=== PATIENT | male | born 1960 | race Caucasian/White ===

== ENCOUNTER 2017-08-01 12:18 | Emergency (ER) | payer OTHER ==
[~2017-08-01] VITALS: Ht 193 cm; Wt 104.3 kg
--- NOTE | ~2017-08-01 | EKG ---
[address] [address] ELECTROCARDIOGRAM REPORT Name: GREGORIO PAN [facility] #: [facility] [id number] Admission: 08/01/17 Attend Phys: Discharge: 08/01/17 Date of : 60 Report #: [id number] THIS REPORT FOR: //name// [facility] ED Test Date: 2017-08-01 Test Time: 13:01:05 Pat Name: GREGORIO PAN Department: Room: Gender: M Online Merchandiser: [id number] : 1960 Requested By: Alfonso Griffin Order Number: [id number] MD: Hai Gonzalez Measurements Intervals [place] Rate: 56 P: 51 TN: 169 QRS: 40 QRSD: 92 T: 45 QT: 415 QTc: 401 Interpretive Statements Sinus rhythm Compared to ECG 03/19/2016 10:45:49 ST (T wave) deviation no longer present Electronically Signed On 08-01-2017 15:47:20 CDT by Hai Gonzalez [email or web address] <ELECTRONICALLY SIGNED> By: Hai Gonzalez MD 08/01/17 1547 1301 130 Hai Gonzalez MD /NEREYDA
[~2017-08-01 12:18] MED LIST: ADULT LOW DOSE81 MG PO; ALEVE220 MG PO; AMARYL1 MG PO; AMARYL2 MG PO; ASPIRIN325 PO; BACTRIM DS TAB1 EACH PO; CELEXA 10 MG TA10 M1 PO; CLARITIN10 MG PO; COLACE100 MG PO; DIABETA 2.5MG2.5 MG PO; DILAUDID 2 MG TA2 MG PO; EPIPEN 2-P0.3 MG/0.3 IM; FISH OIL 1,0001 EAC5 PO; FLEET ENEMA118 ML; FLOMAX PO; GLUCOPHAGE1000 MG PO; GLUMETZA1000 PO; HYDROCODON-ACE1 EAC8 PO; IBUPROFEN 800800 M1 PO; IBUPROFEN 800800 MG PO; IMDUR 30 MG TAB30 MG PO; ISOSORBIDE DINI30 MG PO; ISOSORBIDE MONO30 M1 PO; KEFLEX500 MG PO; LEVAQUIN 500 M500 M2 PO; LIPITOR10 MG PO; LISINOPRIL-HCT1 EAC1 PO; LISINOPRIL40 MG PO; LYRICA 75 MG CA75 MG PO; LYRICA150 MG PO; MEDROL DOSPAK21 TAB PO; MEDROLDOSEPACK PO; NABUMETONE 500500 M1 PO; NEURONTIN 300300 M1 PO; NITROSTAT0.4 MG SUBLING; NORCO 5-325 TA1 EACH PO; OSELB75 PO; OXYCODONE HCL5 M1; PERCOCET 5-3251 EACH PO; PERCOCET PO; PREDNISONE 20 M20 MG PO; SIMVASTATIN80 MG PO; TAMSULOSIN HCL0.4 M1 PO; TIZANIDINE HCL4 MG PO; TRAMADOL 50 MG50 MG PO; VITAMINC500 PO; XANAX XR0.5 MG PO; ZANTAC 150MG T150 M1 PO; ZESTRIL10 MG PO
[2017-08-01 12:46] LABS: HEMOGLOBIN 14.5 gm/dL (14.0-18.0); MCH 31.7 pg (26.0-34.0); MCHC 34.5 g/dL (28.0-37.0); RBC 4.56 mil/uL (4.50-6.00); RDW 12.8 % (10.5-14.5); WBC 5.5 thou/uL (4.0-11.0)
[2017-08-01 12:50] LABS: ANION GAP 7 mmol/L (7-16); BUN 14 mg/dL (7-18); CALCIUM 8.8 mg/dL (8.5-10.1); CHLORIDE 105 mmol/L (98-107); CO2 27 mmol/L (21-32); CREATININE 0.8 mg/dL (0.7-1.3); GLUCOSE 189 mg/dL (74-106); POTASSIUM 4.4 mmol/L (3.5-5.1); SODIUM 139 mmol/L (136-145)
[2017-08-01 12:59] LABS: TROPONIN-I < 0.04 ng/mL (<0.04-0.07)
[2017-08-01 13:30] LABS: URINE BILIRUBIN NEGATIVE (Negative); URINE BLOOD NEGATIVE (Negative); URINE COLOR YELLOW; URINE GLUCOSE-RANDOM* NEGATIVE (Negative); URINE KETONES NEGATIVE (Negative); URINE LEUKOCYTES-REFLEX NEGATIVE (Negative); URINE PROTEIN (DIPSTICK) NEGATIVE (Negative); URINE UROBILINOGEN 0.2 E.U./dl (0.2-1.0)
[2017-08-01 14:12] VITALS: BP 116/76
== END 2017-08-01 14:20 | disposition short-term general hospital (02) ==
LOC: ER 12:18
PROVIDERS: Emergency Medicine
DX: R40.0 Somnolence (principal); R53.83 Other fatigue; F17.210 Nicotine dependence, cigarettes, uncomplicated

== ENCOUNTER 2019-01-12 09:04 | Emergency (ER) | payer OTHER ==
[~2019-01-12] VITALS: Ht 188 cm; Wt 113.4 kg
[2019-01-12] MEDS ORDERED: LYRICA 75 MG CA75 MG PO (09:20)
[2019-01-12] MEDS ORDERED: SYMBICORT160 MCG/4. INH (09:21)
[2019-01-12] MEDS ORDERED: LISINOPRIL2.5 MG PO (09:21)
[2019-01-12 09:31] LABS: ABSOLUTE NEUTROPHILS 5.1 thou/uL (1.4-8.2); BASOPHILS 0.6 % (0.0-2.0); EOSINOPHILS 3.2 % (0.0-3.0); HEMATOCRIT 48.5 % (42.0-52.0); HEMOGLOBIN 16.7 gm/dL (14.0-18.0); LYMPHOCYTES 13.3 % (24.0-44.0); MCH 31.9 pg (26.0-34.0); MCHC 34.5 g/dL (28.0-37.0); MCV 92.5 fL (80.0-100.0); MONOCYTES 8.1 % (1.0-8.0); PLATELET COUNT 148 thou/uL (150-400); POLYS 74.8 % (36.0-66.0); RBC 5.24 mil/uL (4.50-6.00); RDW 13.2 % (10.5-14.5); WBC 6.8 thou/uL (4.0-11.0)
[2019-01-12 09:35] LABS: CREATININE 0.8 mg/dL (0.7-1.3); POTASSIUM 4.1 mmol/L (3.5-5.1)
[2019-01-12 09:41] LABS: ALBUMIN 4.2 g/dL (3.4-5.0); TOTAL BILIRUBIN 0.6 mg/dL (<0.1-1.0); TOTAL PROTEIN 7.5 g/dL (6.4-8.2)
[2019-01-12 10:43] LABS: URINE BILIRUBIN NEGATIVE (Negative); URINE BLOOD NEGATIVE (Negative); URINE CLARITY CLEAR; URINE COLOR YELLOW; URINE GLUCOSE-RANDOM* 3+ (Negative); URINE KETONES NEGATIVE (Negative); URINE LEUKOCYTES-REFLEX NEGATIVE (Negative); URINE NITRITE-REFLEX NEGATIVE (Negative); URINE PROTEIN (DIPSTICK) NEGATIVE (Negative); URINE UROBILINOGEN 0.2 E.U./dl (0.2-1.0)
[2019-01-12 12:02] LABS: LIPASE 132 U/L (73-393); TROPONIN-I <0.06 ng/mL (<0.06)
[2019-01-12] MEDS ORDERED: FLEXERIL PO (13:14)
[2019-01-12 13:43] VITALS: BP 108/74
== END 2019-01-12 13:45 | disposition home or self-care (01) ==
LOC: ER 09:04
PROVIDERS: Student in an Organized Health Care Education/Training Program
DX: N43.3 Hydrocele, unspecified (principal); R10.13 Epigastric pain; M79.18 Myalgia, other site; F17.210 Nicotine dependence, cigarettes, uncomplicated

== ENCOUNTER → 2019-01-22 | Outpatient (CLI) | payer OTHER ==
[~2019-01-22] MED LIST changes: +FLEXERIL PO; +LISINOPRIL2.5 MG PO; +SYMBICORT160 MCG/4. INH
== END ==
LOC: MRI 10:17
DX: M47.26 Other spondylosis with radiculopathy, lumbar region (principal); M51.16 Intervertebral disc disorders with radiculopathy, lumbar region; M48.062 Spinal stenosis, lumbar region with neurogenic claudication

== ENCOUNTER → 2019-02-24 | Outpatient (CLI) | payer OTHER ==
[~2019-02-24] VITALS: Ht 185.4 cm; Wt 95.9 kg
[~2019-02-24] MED LIST changes: +JARDIANCE25 MG PO; +MOBIC15 MG PO; +MYRBETRIQ25 MG PO; +ZYRTEC10 M4 PO
--- NOTE | ~2019-02-24 | HPC ---
[facility] [place] [address] PAIN MANAGEMENT CONSULTATION Name: GREGORIO PAN [facility] [id number] Admission: 02/24/19 ������������������ Attend Phys: Matthew Evangelista DO Discharge: ������������������ Date of : 60 Report #: [id number] THIS REPORT FOR: //name// CC: Kisha Moreira ANP Matthew Orr DATE OF SERVICE: 02/24/2019 CHIEF COMPLAINT: Low back pain, right lower extremity pain and paresthesias. HISTORY OF PRESENT ILLNESS: As you know, the patient is an unfortunate 58-year-old male who returns today in followup visit per the request of the nurse practitioner at [facility], Kisha Moreira, to undergo a lumbar epidural injection under fluoroscopic guidance to address lumbar radiculopathy involving the right lower extremity. The patient has plans to undergo surgery in March around the 18th of the month, but has been advised to trial an epidural injection to determine if his symptoms can improve with this type of procedure as they progress towards surgical options. The patient denies any specific injury or trauma that led to symptom development. There are findings at the L3-L4 level concerning enough that the patient will ultimately have surgery, but they have wished a trial of epidural injections prior to provide pain relief as they progress towards the surgical date. The patient denies again any injury or trauma that may have led to symptom recurrence. ALLERGIES: LIDOCAINE/IV CONTRAST AGENT. CURRENT MEDICATIONS: Glimepiride 2 mg once a day, atorvastatin 10 mg per day, tamsulosin 0.4 mg once a day, vitamin C 1000 mg per day, omega-3 fish oil 1000 mg per day, aspirin 325 mg per day, metformin 1000 mg 2 tabs twice a day, isosorbide mononitrate 30 mg dose once a day, gabapentin 1200 mg 3 times a day, Lyrica 150 mg 3 times a day, lisinopril 2.5 mg once a day, Symbicort 2 puffs twice a day, Zyrtec 10 mg once a day. SOCIAL HISTORY: The patient is an everyday smoker, smoking half pack of tobacco per day and has done so for years. Denies IV or illicit drug use. Denies any chronic alcohol use. He is working, not receiving workmen's compensation, unaccompanied today. IMAGING: MRI of the lumbar spine shows disk protrusion at L3-L4, slightly progressed from prior study. There is severe posterior facet degenerative changes just above the fusion at the L4-L5 level, fairly consistent with fusion finding. PHYSICAL EXAMINATION: VITAL SIGNS: Blood pressure 116/74, pulse 76, respiratory rate [address] [address] PAIN MANAGEMENT CONSULTATION Name: GREGORIO PAN Room #: REG [facility].[place].#: [id number] Admission: 02/24/19 ������������������ Attend Phys: Matthew Evangelista DO Discharge: ������������������ Date of : 60 Report #: [id number] unlabored. The patient is 100% on room air. Height 6 feet 1 inch tall, weight 211.5 pounds, BMI calculated 27.9. GENERAL: Well-developed, well-nourished, well-hydrated 58-year-old male, smell strongly of tobacco smoke. Appears much older than stated age, placing current pain score at 8/10. HEENT: Normocephalic, atraumatic. Pupils equal, round, reactive to light. Extraocular muscles are intact. Sclerae nonicteric without injection. NEUROLOGIC: Cranial nerves 2-12 grossly intact. Speech fluent. LUNGS: Decreased breath sounds bilaterally, prolonged expiratory phase. CARDIOVASCULAR: Regular. No appreciable gallop, no rub. ABDOMEN: Soft. EXTREMITIES: Show no clubbing, no cyanosis, and no edema. MUSCULOSKELETAL: Seated straight leg raising negative. Supine straight leg raising positive on the right at approximately 60 degrees. Ankle clonus negative. Babinski is negative. Muscle bulk and tone is symmetrical when comparing left lower extremity to right. Gait is antalgic favoring right lower extremity over left. The patient is using a cane for ambulation. There is giveaway strength noted with hip flexion, knee extension on the right when compared to left. Otherwise, muscle strength is 5/5. Intact to light touch from L1 and L2, decreased L3 on the right to light touch. Remainder of dermatomal sensation is normal. ASSESSMENT: 1. Symptomatic lumbar radiculopathy. 2. Displacement of lumbar intervertebral disk with radiculopathy. 3. Lumbosacral spondylosis with radiculopathy. 4. Chronic intractable pain. PLAN: 1. The patient has been referred back to our clinic by his Neurosurgery team to undergo a lumbar epidural injection under fluoroscopic guidance to address recurrent lumbar radicular symptoms. The patient was advised by Neurosurgery he could undergo the injection today; unfortunately, the patient's insurance requires authorization before this could be obtained. The patient became somewhat irate and was quite upset about the fact that he could not undergo the epidural injection with extensive due diligence by my scheduling staff. We were able to obtain this authorization, which typically takes anywhere from 4-7 working days. We were luckily able to obtain this authorization for the patient to undergo procedure today. The patient was advised risks and benefits of a lumbar epidural injection. These risks include but are not necessarily limited to bleeding, bruising, infection, worsening pain, no relief of pain, also risk of temporary or permanent muscle weakness, temporary or permanent nerve damage, possible paralysis and . The patient states he understood and wished to proceed. 2. No medication changes made at today's visit. The patient will continue current medical therapy as previously prescribed. [address] [address] PAIN MANAGEMENT CONSULTATION Name: VIVIANEGREGORIO Room #: REG [facility] Osei#: [id number] Admission: 02/24/19 ������������������ Attend Phys: Matthew Evangelista DO Discharge: ������������������ Date of : 60 Report #: [id number] 3. We will see the patient back in followup visit on an as-needed basis for possible next in the series of epidural injections. I did caution the patient that his insurance requires that authorization be obtained before he can undergo next in the series of epidural injections. This may not be possible to be obtained during the initial visit as many times the findings of physical exam need to be provided to the insurer in written form before they will entertain a prior authorization. I made him aware of this today, so any return visit may not be met with an epidural injection at that visit. DESCRIPTION OF PROCEDURE: L3-L4 interlaminar epidural steroid injection under fluoroscopic guidance. After obtaining written consent, the patient was taken back to fluoroscopy suite, placed in prone position with pillow under abdomen to decrease lumbar lordosis. Skin overlying lumbosacral area then prepped and draped in aseptic fashion. The L3-L4 vertebral levels were identified by AP fluoroscopy. Skin and subcutaneous tissue overlying target site of injection anesthetized with 3 mL of Marcaine 0.5%. A 20-gauge 3-1/2 inch Tuohy needle advanced under fluoroscopic guidance towards the epidural space using a right paramedian approach. Epidural space identified using loss of resistance to air technique. Due to a CONTRAST ALLERGY, no contrast agent was used in today's procedure. Needle position was confirmed using both AP and lateral fluoroscopy. After negative aspiration for heme or cerebrospinal fluid, 5 mL of a solution containing 2 mL, 40 mg per mL, 80 mg total triamcinolone and 1 mL bupivacaine 0.5% and 2 mL of preservative-free normal saline was injected. Needle was retracted approximately half way, flushed with 1 mL of bupivacaine 0.5% then removed. Sterile bandage placed over injection site. There were no new motor deficits present in lower extremity following the procedure. The patient tolerated procedure well, carefully escorted to recovery room in stable condition. No apparent complications. After meeting discharge criteria, the patient discharged home. ��������������������������������������������� ���������������������������������������� By: ��������������������������������������������� [id number] Matthew Evangelista DO /angel
[2019-02-24 13:56] VITALS: BP 116/74
--- NOTE | 2019-02-24 14:36 | NUR ---
Pain Clinic Assessment: 1. History of Osteoarthritis: Not Applicable History of Rheumatoid Arthritis: Not Applicable 2. Height: 6 ft. 1 in. 185.4 cm. Weight: 211.5 lb. oz. 95.936 kg. Patient's BMI: 27.9 3. Vital Signs: BP: 116/74 Pulse: 76 Resp: 16 Temp: 02 Sat: 100 ECG Mon: 4. Pain Intensity: 8 5. Fall Risk: Dizziness: N Needs help standing or walking: Y Fallen in the last 3 months: N Fall risk comments: 6. Patient on Blood Thinner: None 7. History of Hypertension: N 8. Opioid Therapy greater than 6 weeks: N Opiate Contract Signed: 9. Risk Assessment Tool Provided: 10. Functional Assessment Tool: 68/70 11. Recreational Drug Use: Past greater than 3 mos Drug Type: Tobacco Use: Current Every Day Smoker Tobacco Type: Cigarettes Amount or Packs/day: 1/2 How Many Years: 35 Alcohol Use: No Frequency: Quant:
== END | disposition home or self-care (01) ==
LOC: PAIN 07:11
DX: M51.16 Intervertebral disc disorders with radiculopathy, lumbar region (principal); M47.27 Other spondylosis with radiculopathy, lumbosacral region; G89.29 Other chronic pain; M19.90 Unspecified osteoarthritis, unspecified site; F17.210 Nicotine dependence, cigarettes, uncomplicated; Z91.041 Radiographic dye allergy status; Z79.899 Other long term (current) drug therapy; Z79.82 Long term (current) use of aspirin; Z98.890 Other specified postprocedural states

== ENCOUNTER → 2019-07-16 | Outpatient (CLI) | payer OTHER | LOC: MRI 09:18 | DX: M23.022 Cystic meniscus, posterior horn of medial meniscus, left knee (principal); M17.12 Unilateral primary osteoarthritis, left knee; M71.22 Synovial cyst of popliteal space [Baker], left knee; Z96.652 Presence of left artificial knee joint; X58.XXXA Exposure to other specified factors, initial encounter ==

== ENCOUNTER 2019-09-09 19:05 | Emergency (ER) | payer OTHER ==
[~2019-09-09] VITALS: Ht 185.4 cm; Wt 95.3 kg
[2019-09-09] MEDS ORDERED: MOBIC15 MG PO (21:15)
[2019-09-09] MEDS ORDERED: ROXICODONE5 M2 PO (21:15)
[2019-09-09 21:47] VITALS: BP 122/73
== END 2019-09-09 21:57 | disposition home or self-care (01) ==
LOC: ER 19:05
DX: M54.16 Radiculopathy, lumbar region (principal); F17.210 Nicotine dependence, cigarettes, uncomplicated; Z91.041 Radiographic dye allergy status; Z88.4 Allergy status to anesthetic agent

== ENCOUNTER → 2020-06-16 | Outpatient (CLI) | payer OTHER ==
[~2020-06-16] MED LIST changes: +ROXICODONE5 M2 PO
== END ==
LOC: LAB 10:09
PROVIDERS: ATTEND Family Medicine
DX: Z20.828 Contact with and (suspected) exposure to other viral communicable diseases (principal); R05 Cough; R06.02 Shortness of breath